=== PATIENT | male | born 1950 | race Caucasian/White ===

== ENCOUNTER 2019-04-14 18:53 | Observation (INO) | payer OTHER ==
[~2019-04-14] VITALS: Ht 170.2 cm; Wt 99.8 kg
[~2019-04-14 18:53] MED LIST: ACIDOPHILUS JT; CREON; CREON DR; DOCU100 PO; ENOX120I SQ; ESCI10 JT; HYDACE5 PO; IBUP600 PO; ISOSOURCE; LISI5 PO; LORA.5 PO; MULVITMINE PO; MULVITSO JT; OCTREOTIDE; OMEP20ER PO; OMEPRAZOLE; OXYCODONE JT; SODBIC650 PO; SODIUM BICARBONATE; TRAZ50 JT; WARF5 PO; ZINC220 JT
[2019-04-14] MEDS ORDERED: LOSA25 PO (19:28)
[2019-04-14] MEDS ORDERED: FISH OIL 1,001000 MG PO (19:29)
[2019-04-14] MEDS ORDERED: THERA1 EACH PO (19:29)
[2019-04-14] MEDS ORDERED: CALCIUM 500 +1 EAC3 PO (19:29)
[2019-04-14 19:33] LABS: BASOPHILS ABSOLUTE AUTO 0.03 K/mm3 (0.00-0.23); BASOPHILS PERCENT AUTO 0 % (0-2); EOSINOPHILS ABSOLUTE AUTO 0.08 K/mm3 (0.00-0.68); EOSINOPHILS PERCENT AUTO 1 % (0-6); Hematocrit 41.8 % (37.0-53.0); Hemoglobin 14.2 g/dL (13.5-17.5); IMMATURE GRAN ABSOLUTE AUTO 0.03 K/mm3 (0.00-0.10); IMMATURE GRAN PERCENT AUTO 0 % (0-1); LYMPHOCYTES ABSOLUTE AUTO 3.62 K/mm3 (0.84-5.20); LYMPHOCYTES PERCENT AUTO 28 % (21-46); MONOCYTES ABSOLUTE AUTO 0.83 K/mm3 (0.16-1.47); MONOCYTES PERCENT AUTO 7 % (4-13); Mean Corpuscular HGB 32.2 pg (26.0-34.0); Mean Corpuscular Volume 95 fL (80-100); Mean Platelet Volume 9.1 fL (9.1-12.4); NEUTROPHILS ABSOLUTE AUTO 8.25 K/mm3 (1.96-9.15); NEUTROPHILS PERCENT AUTO 64 % (41-73); Platelet Count 318 K/mm3 (150-400); RDW Coefficient Variation 13.2 % (11.7-14.2); RDW Standard Deviation 46.1 fL (35.1-46.3); Red Blood Cell Count 4.41 M/mm3 (4.30-5.90); White Blood Cell Count 12.84 K/mm3 (4.00-11.30)
[2019-04-14 20:03] LABS: Alanine Aminotransfer (ALT/SGP 19 U/L (12-78); Albumin, Blood 4.2 g/dL (3.4-5.0); Alk Phos 84 U/L (50-136); Anion Gap 8 mmol/L (6-16); Aspartate Aminotrans (AST/SGOT 9 U/L (12-37); Bilirubin, Total 0.5 mg/dL (0.1-1.0); Blood Urea Nitrogen 20 mg/dL (8-24); Bun/Creatinine Ratio 18.7 (12.0-20.0); CO2, Blood 26 mmol/L (21-32); Calcium, Blood 9.8 mg/dL (8.5-10.1); Chloride, Blood 105 mmol/L (98-108); Creatinine, Blood 1.07 mg/dL (0.60-1.20); Glomerular Filtration Rate >60 (60-); Glucose, Blood 118 mg/dL (70-99); Potassium, Blood 3.4 mmol/L (3.5-5.5); Sodium, Blood 139 mmol/L (136-145); Total Protein, Blood 8.2 g/dL (6.4-8.2); Troponin I <0.015 ng/mL (0.000-0.040)
[2019-04-14 20:14] LABS: Free Thyroxine 1.19 ng/dL (0.70-1.60); Magnesium, Blood 1.8 mg/dL (1.6-2.4)
[2019-04-14 20:17] LABS: Thyroid Stimulating Hormone 3.05 uIU/mL (0.360-4.800)
[2019-04-14] MEDS ORDERED: ALBU90OI INH (21:33)
[2019-04-15] MEDS ORDERED: FOLI1 PO (04:39)
[2019-04-15] MEDS ORDERED: Ginseng100 MG PO (04:40)
[2019-04-15 05:52] LABS: Anion Gap 8 mmol/L (6-16); Blood Urea Nitrogen 17 mg/dL (8-24); Bun/Creatinine Ratio 22.5 (12.0-20.0); CO2, Blood 25 mmol/L (21-32); Chloride, Blood 107 mmol/L (98-108); Creatinine, Blood 0.76 mg/dL (0.60-1.20); Glomerular Filtration Rate >60 (60-); Glucose, Blood 107 mg/dL (70-99); Potassium, Blood 3.7 mmol/L (3.5-5.5); Sodium, Blood 140 mmol/L (136-145); Troponin I <0.015 ng/mL (0.000-0.040)
--- NOTE | 2019-04-15 06:31 | NUR ---
PT NEW ADMIT THIS SHIFT FOR AFIB. PT VSS SINCE ARRIVING TO FLOOR, HR SINUS 70'S. PT DENIED CP/PRESSURE/SOB. PLAN FOR ECHO TODAY. ZOFRAN GIVEN FOR MILD NAUSEA, NO EMESIS. PT USING CALL LIGHT FOR ASSISTANCE, WILL CONT TO MONITOR UNITL REP GIVEN TO ONCOMING RN.
--- NOTE | 2019-04-15 10:43 | NUR ---
ECHOCARDIOGRAM COMPLETE
[2019-04-15] MEDS ORDERED: ELIQUIS5 MG PO (13:35)
[2019-04-15] MEDS ORDERED: Lopressor 25 mg25 MG PO (13:37)
--- NOTE | 2019-04-15 16:07 | NUR ---
PT D/C HOME VIA IND AMBULATION FROM UNIT. D/C INSTRUCTIONS PROVIDED; PT VERBALIZED UNDERSTANDING AND DECLINED ANY FURTHER CONCERNS. [facility] RE[facility]. IV REMOVED W/CATH INTACT.
== END 2019-04-15 14:10 | disposition home or self-care (01) ==
LOC: ER 18:53 → ERHOLD 18:54 → SURS 04-15 04:34
PROVIDERS: Emergency Medicine; ADMIT Internal Medicine
DX: I48.0 Paroxysmal atrial fibrillation (principal); R07.89 Other chest pain; I10 Essential (primary) hypertension; E11.9 Type 2 diabetes mellitus without complications; D72.829 Elevated white blood cell count, unspecified; E87.6 Hypokalemia; K21.9 Gastro-esophageal reflux disease without esophagitis; Z85.46 Personal history of malignant neoplasm of prostate; Z86.59 Personal history of other mental and behavioral disorders; Z87.19 Personal history of other diseases of the digestive system; Z86.711 Personal history of pulmonary embolism; Z87.891 Personal history of nicotine dependence; Z79.899 Other long term (current) drug therapy
CPT/HCPCS: 36415; 71046; 80048; 80053; 83036; 83690; 83735; 83880; 84439; 84443; 84484; 85025; 93005; 93010; 93306; 96365; 96366; 96375; 96376; 99285-25; G0378; J2405

== ENCOUNTER 2020-01-08 07:44 | Inpatient (IN) | payer OTHER ==
[~2020-01-08] VITALS: Ht 167.6 cm; Wt 89.4 kg
[~2020-01-08 07:44] MED LIST changes: +ALBU90OI INH; +CALCIUM 500 +1 EAC3 PO; +ELIQUIS5 MG PO; +FISH OIL 1,001000 MG PO; +FOLI1 PO; +Ginseng100 MG PO; +LOSA25 PO; +Lopressor 25 mg25 MG PO; +THERA1 EACH PO
--- NOTE | 2020-01-08 09:38 | NUR ---
History, Chart, Medications and Allergies reviewed before start of procedure. LS WITH EXP WHEEZES T/O. PT REPORTS SMOKES 2 PACKS OF CIGARS DAILY. Patient confirms NPO status and agrees with scheduled surgery. Pre-Op teaching done. Pt verbalizes understanding. Patient States Post-Procedure ride home has been arranged. Patient reports completing Chlorhexadine shower X2 prior to admission to hospital.
--- NOTE | 2020-01-08 13:19 | NUR ---
01/08/20 1319 Funmilayo Mtz [id number] CONVERTED TO OPEN JEFF
[2020-01-08 16:05] LABS: BASOPHILS ABSOLUTE AUTO 0.02 K/mm3 (0.00-0.23); BASOPHILS PERCENT AUTO 0 % (0-2); EOSINOPHILS PERCENT AUTO 0 % (0-6); Hematocrit 42.2 % (37.0-53.0); Hemoglobin 13.8 g/dL (13.5-17.5); IMMATURE GRAN ABSOLUTE AUTO 0.09 K/mm3 (0.00-0.10); IMMATURE GRAN PERCENT AUTO 1 % (0-1); LYMPHOCYTES ABSOLUTE AUTO 0.87 K/mm3 (0.84-5.20); LYMPHOCYTES PERCENT AUTO 5 % (21-46); MONOCYTES ABSOLUTE AUTO 0.23 K/mm3 (0.16-1.47); MONOCYTES PERCENT AUTO 1 % (4-13); Mean Corpuscular HGB 31.8 pg (26.0-34.0); Mean Corpuscular HGB Conc 32.7 g/dL (31.5-36.5); Mean Corpuscular Volume 97 fL (80-100); Mean Platelet Volume 9.3 fL (9.1-12.4); NEUTROPHILS ABSOLUTE AUTO 17.01 K/mm3 (1.96-9.15); NEUTROPHILS PERCENT AUTO 93 % (41-73); Platelet Count 249 K/mm3 (150-400); RDW Coefficient Variation 13.7 % (11.7-14.2); RDW Standard Deviation 49.5 fL (35.1-46.3); Red Blood Cell Count 4.34 M/mm3 (4.30-5.90); White Blood Cell Count 18.22 K/mm3 (4.00-11.30)
--- NOTE | 2020-01-08 19:35 | NUR ---
SHIFT SUMMARY PT ARRIVED AT 1600. VERY DROWSY AND GROGGY NEEDING FREQ REMINDERS. PT C/O NAUSEA THIS SHIFT ENDING DRY HEAVES NO EMESIS.
--- NOTE | 2020-01-09 00:39 | NUR ---
2350 PT UP BSC X 3 ASSIST; UNABLE TO VOID; PT RETURNED BACK TO BED AND BLADDER SCANNED FOR 588ML. 0030 PT STRAIGHT CATHED #14 BENINESE CATHETER VIA STERILE TECHNIQUE; 600ML CLEAR YELLOW FLUID NOTED; PT FEELS 100% BETTER.
--- NOTE | 2020-01-09 04:26 | NUR ---
SHIFT SUMMARY: 69 Y/O MALE HAD RESTLESS NIGHT AT TIMES; PT UNABLE TO VOID AND REQUIRED STRAIGHT CATHED 600ML AFTER BLADDER SCAN REFLECTED > 588ML; PT AWARE OF NEED TO VOID WITH URINAL AT SIDE; PT IS ALERT AND ORIENTED X 4 AND ABLE TO FOLLOW ALL SIMPLE VERBAL COMMANDS; PT WAS ASSISTED UP TO BSC X 3 THIS SHIFT WITH 2 NURSING STAFF AT SIDE; PTS BIRD [place] CONTINUES TO DRAIN LARGE AMOUNTS DARK RED FLUID; ABD DRESSINGS DRY AND INTACT (CARMELA AND DRESSING X 3 FROM FAILED LAP JEFF SURGICAL SITES X 3); PT C/O ABD PAIN RATED 7/10 WITH DILAUDID 0.2 MG IVP GIVEN TWICE WITH ADEQUATE PAIN RELIEF FELT; PT WEARING BILATERAL LOWER EXTREMITY SCDS; PT TOLERATING ICE CHIPS; BED LOW POSITION, BED ALARM APPLIED FOR SAFETY AND CALL LIGHT AT SIDE.
[2020-01-09 05:24] LABS: BASOPHILS ABSOLUTE AUTO 0.01 K/mm3 (0.00-0.23); BASOPHILS PERCENT AUTO 0 % (0-2); EOSINOPHILS PERCENT AUTO 0 % (0-6); Hematocrit 37.5 % (37.0-53.0); Hemoglobin 12.2 g/dL (13.5-17.5); IMMATURE GRAN ABSOLUTE AUTO 0.03 K/mm3 (0.00-0.10); IMMATURE GRAN PERCENT AUTO 0 % (0-1); LYMPHOCYTES ABSOLUTE AUTO 1.61 K/mm3 (0.84-5.20); LYMPHOCYTES PERCENT AUTO 11 % (21-46); MONOCYTES ABSOLUTE AUTO 0.82 K/mm3 (0.16-1.47); MONOCYTES PERCENT AUTO 6 % (4-13); Mean Corpuscular HGB 31.8 pg (26.0-34.0); Mean Corpuscular HGB Conc 32.5 g/dL (31.5-36.5); Mean Corpuscular Volume 98 fL (80-100); NEUTROPHILS ABSOLUTE AUTO 12.56 K/mm3 (1.96-9.15); NEUTROPHILS PERCENT AUTO 84 % (41-73); Platelet Count 223 K/mm3 (150-400); RDW Coefficient Variation 13.7 % (11.7-14.2); RDW Standard Deviation 49.2 fL (35.1-46.3); Red Blood Cell Count 3.84 M/mm3 (4.30-5.90); White Blood Cell Count 15.03 K/mm3 (4.00-11.30)
[2020-01-09 05:40] LABS: Alanine Aminotransfer (ALT/SGP 37 U/L (12-78); Albumin, Blood 2.9 g/dL (3.4-5.0); Albumin/Globulin Ratio 0.8 (0.8-1.8); Alk Phos 71 U/L (50-136); Anion Gap 5 mmol/L (6-16); Aspartate Aminotrans (AST/SGOT 28 U/L (12-37); Bilirubin, Total 0.4 mg/dL (0.1-1.0); Blood Urea Nitrogen 9 mg/dL (8-24); Bun/Creatinine Ratio 14.5 (12.0-20.0); CO2, Blood 26 mmol/L (21-32); Calcium, Blood 8.3 mg/dL (8.5-10.1); Chloride, Blood 111 mmol/L (98-108); Creatinine, Blood 0.62 mg/dL (0.60-1.20); Globulin, Blood 3.5 g/dL (2.2-4.0); Glomerular Filtration Rate >60 (60-); Glucose, Blood 127 mg/dL (70-99); Potassium, Blood 3.8 mmol/L (3.5-5.5); Sodium, Blood 142 mmol/L (136-145); Total Protein, Blood 6.4 g/dL (6.4-8.2)
--- NOTE | 2020-01-09 19:19 | NUR ---
SHIFT SUMMARY PT A&OX4, VSS, POD1, 4 SITES CDI, RAFAEL DRAINING SS, PAIN MANAGED WITH 5 MG NORCO, JOEY PO CL DIET. STAND TRANSFER TO CHAIR AND BACK TO BED. REPORT GIVEN TO KAEL TROY.
--- NOTE | 2020-01-10 05:07 | NUR ---
SHIFT SUMMARY: DANK IS A&OX4. VSS, NO ACUTE EVENTS OVERNIGHT. TOLERATING PO INTAKE, DENIES NAUSEA. HE IS URINATING WITHOUT DIFFICULTY IN THE URINAL. DRESSING INTACT TO ABDOMEN, NO NEW DRAINAGE. HE REPORTS ADEQUATE PAIN CONTROL WITH ONE TABLET OF NORCO. HE USES HIS CALL LIGHT APPROPRIATELY. O2 AT 2 L VIA NC. HE IS LYING COMFORTABLY IN BED WITH HIS CALL LIGHT IN REACH.
--- NOTE | 2020-01-10 19:42 | NUR ---
SHIFT SUMMARY PT A&OX4, VSS, POD2 SID/OPEN JEFF CARMELA WNL, ANDER AN. PAIN MANAGED WITH 5 MG NORCO. JOEY CL DIET; REPORTS SMALL FLATUS ONCE. AMB INDEPENDENTLY TO BRP/HALLWAY AND UP TO CHAIR. WILL REPORT TO ONCOMING NOC RN.
--- NOTE | 2020-01-11 07:58 | NUR ---
SUMMARY PT AMBULATORY.TOLERATING PO PAIN MED.INITIALLY NAUSEATED WHICH RESOLVED WITH 1 DOSE ANTIEMETIC.VERB PO PAINMEDS EFFECTIVE.HAS PASSED SMALL AMNT FLATUS.
--- NOTE | 2020-01-11 18:11 | NUR ---
Shift summary Patient had blood pressure reading of 86/52 HR 105 at 1619 - Patient started back on LR at 100cc/hr per order. Recheck BP of 78/47 HR 74 at 1748. Call placed to oncall surgeon. Order for LR bolus obtained. Recheck at 1805 BP 91/57 HR 74. Patient asymptomatic. Dressing to abdomen is CDI. Patient passing flatus. Patient tolerating regular diet. Pain controlled with [place]. Patient has been independent in the room. Patient is voiding dark yellow urine. Encouraged PO intake and maintainance IV fluids ordered. Call light within patient reach.
[2020-01-12 04:56] LABS: BASOPHILS ABSOLUTE AUTO 0.03 K/mm3 (0.00-0.23); BASOPHILS PERCENT AUTO 0 % (0-2); EOSINOPHILS ABSOLUTE AUTO 0.26 K/mm3 (0.00-0.68); EOSINOPHILS PERCENT AUTO 3 % (0-6); Hematocrit 38.3 % (37.0-53.0); Hemoglobin 12.9 g/dL (13.5-17.5); IMMATURE GRAN ABSOLUTE AUTO 0.01 K/mm3 (0.00-0.10); IMMATURE GRAN PERCENT AUTO 0 % (0-1); LYMPHOCYTES ABSOLUTE AUTO 2.77 K/mm3 (0.84-5.20); LYMPHOCYTES PERCENT AUTO 33 % (21-46); MONOCYTES ABSOLUTE AUTO 0.57 K/mm3 (0.16-1.47); MONOCYTES PERCENT AUTO 7 % (4-13); Mean Corpuscular HGB Conc 33.7 g/dL (31.5-36.5); Mean Corpuscular Volume 95 fL (80-100); Mean Platelet Volume 9.4 fL (9.1-12.4); NEUTROPHILS ABSOLUTE AUTO 4.79 K/mm3 (1.96-9.15); NEUTROPHILS PERCENT AUTO 57 % (41-73); Platelet Count 220 K/mm3 (150-400); RDW Coefficient Variation 13.1 % (11.7-14.2); Red Blood Cell Count 4.03 M/mm3 (4.30-5.90); White Blood Cell Count 8.43 K/mm3 (4.00-11.30)
[2020-01-12 05:16] LABS: Alanine Aminotransfer (ALT/SGP 24 U/L (12-78); Albumin, Blood 2.9 g/dL (3.4-5.0); Albumin/Globulin Ratio 0.8 (0.8-1.8); Alk Phos 74 U/L (50-136); Anion Gap 5 mmol/L (6-16); Aspartate Aminotrans (AST/SGOT 17 U/L (12-37); Bilirubin, Total 0.6 mg/dL (0.1-1.0); Blood Urea Nitrogen 10 mg/dL (8-24); CO2, Blood 30 mmol/L (21-32); Calcium, Blood 8.5 mg/dL (8.5-10.1); Chloride, Blood 104 mmol/L (98-108); Creatinine, Blood 0.59 mg/dL (0.60-1.20); Globulin, Blood 3.8 g/dL (2.2-4.0); Glomerular Filtration Rate >60 (60-); Glucose, Blood 98 mg/dL (70-99); Potassium, Blood 3.4 mmol/L (3.5-5.5); Sodium, Blood 139 mmol/L (136-145); Total Protein, Blood 6.7 g/dL (6.4-8.2)
--- NOTE | 2020-01-12 07:31 | NUR ---
SUMMARY PT PASSING FLATUS. NO C/O NAUSEA. REPORTS PAIN WELL CONTROLLED. VOIDING CLR YELLOW IMPROVED BP. ALSO NOTED PT ON LOPRESSER. HELD PER PROTOCOL. STAFF WILL CONTINUE TO MONITOR. PT AMBULATORY.
[2020-01-12] MEDS ORDERED: Norco 5-325 Ta1 EACH PO (12:13)
--- NOTE | 2020-01-12 12:46 | NUR ---
Discharge summary Patient discharged home. IV out. Prescription for [place] given to patient. Patient to follow up with general surgery. Discharge instructions given, explained and signed. Patient denied any questions or concerns at discharge.
[2020-02-25] MEDS ORDERED: HYDR1TAB94 PO (09:30)
== END 2020-01-12 12:49 | disposition home or self-care (01) | DRG 416 ==
LOC: ORSCMMR 07:44 → ORD 09:30 → ORSCMMR 14:58 → SURS 14:58 → ORSCMMR 15:50 → SURS 01-12 12:49
PROVIDERS: Surgery; ADMIT Surgery
PROC: 0DNU0ZZ Release Omentum, Open Approach (ICD-10-PCS; 2020-01-08)
PROC: 0WQF0ZZ Repair Abdominal Wall, Open Approach (ICD-10-PCS; 2020-01-08)
PROC: 0FT40ZZ Resection of Gallbladder, Open Approach (ICD-10-PCS; principal; 2020-01-08 09:30)
PROC: 0FJ44ZZ Inspection of Gallbladder, Percutaneous Endoscopic Approach (ICD-10-PCS; 2020-01-08 09:30)
DX: K80.20 Calculus of gallbladder without cholecystitis without obstruction (principal); F17.210 Nicotine dependence, cigarettes, uncomplicated; M54.9 Dorsalgia, unspecified; I10 Essential (primary) hypertension; I48.0 Paroxysmal atrial fibrillation; K21.9 Gastro-esophageal reflux disease without esophagitis; E78.5 Hyperlipidemia, unspecified; Z85.46 Personal history of malignant neoplasm of prostate; G47.30 Sleep apnea, unspecified; K43.2 Incisional hernia without obstruction or gangrene
CPT/HCPCS: 36415; 74300; 80053; 85025; 86850; 86900; 86901; 88304; A9270-GY; C1729; C1894; J0690; J1100; J1170; J1650; J2250; J2370; J2405; J2550; J2704; J3010; J7120

== ENCOUNTER 2020-02-27 15:42 | Inpatient (IN) | payer OTHER, MEDICARE ==
[~2020-02-27] VITALS: Wt 57.5 kg
[~2020-02-27 15:42] MED LIST changes: +HYDR1TAB94 PO; +Norco 5-325 Ta1 EACH PO
[2020-02-27 18:56] LABS: Hematocrit 29.4 % (37.0-53.0); Hemoglobin 9.6 g/dL (13.5-17.5); Mean Corpuscular HGB 30.7 pg (26.0-34.0); Mean Corpuscular HGB Conc 32.7 g/dL (31.5-36.5); Mean Corpuscular Volume 94 fL (80-100); Mean Platelet Volume 9.4 fL (9.1-12.4); Platelet Count 337 K/mm3 (150-400); RDW Standard Deviation 47.4 fL (35.1-46.3); Red Blood Cell Count 3.13 M/mm3 (4.30-5.90); White Blood Cell Count 15.96 K/mm3 (4.00-11.30)
== END 2020-02-27 21:40 | disposition short-term general hospital (02) | DRG 395 ==
LOC: SURS 15:42
PROVIDERS: ADMIT Surgery
DX: K63.2 Fistula of intestine (principal); I10 Essential (primary) hypertension; K21.9 Gastro-esophageal reflux disease without esophagitis; G47.33 Obstructive sleep apnea (adult) (pediatric); I48.0 Paroxysmal atrial fibrillation; Z87.891 Personal history of nicotine dependence; Z85.46 Personal history of malignant neoplasm of prostate
CPT/HCPCS: 85027; J2405; J7120; U0002

== ENCOUNTER → 2020-03-10 | Outpatient (CLI) | payer OTHER, BC ==
[~2020-03-10] MED LIST changes: +ZOFRAN8 MG PO
[2020-03-10 12:24] LABS: BASOPHILS ABSOLUTE AUTO 0.02 K/mm3 (0.00-0.23); BASOPHILS PERCENT AUTO 0 % (0-2); EOSINOPHILS ABSOLUTE AUTO 0.15 K/mm3 (0.00-0.68); EOSINOPHILS PERCENT AUTO 3 % (0-6); Hematocrit 28.2 % (37.0-53.0); Hemoglobin 8.9 g/dL (13.5-17.5); IMMATURE GRAN ABSOLUTE AUTO 0.02 K/mm3 (0.00-0.10); IMMATURE GRAN PERCENT AUTO 0 % (0-1); LYMPHOCYTES ABSOLUTE AUTO 1.42 K/mm3 (0.84-5.20); LYMPHOCYTES PERCENT AUTO 24 % (21-46); MONOCYTES ABSOLUTE AUTO 0.55 K/mm3 (0.16-1.47); MONOCYTES PERCENT AUTO 9 % (4-13); Mean Corpuscular HGB 30.7 pg (26.0-34.0); Mean Corpuscular HGB Conc 31.6 g/dL (31.5-36.5); Mean Corpuscular Volume 97 fL (80-100); Mean Platelet Volume 9.7 fL (9.1-12.4); NEUTROPHILS ABSOLUTE AUTO 3.88 K/mm3 (1.96-9.15); NEUTROPHILS PERCENT AUTO 64 % (41-73); Platelet Count 257 K/mm3 (150-400); RDW Coefficient Variation 16.1 % (11.7-14.2); RDW Standard Deviation 57.1 fL (35.1-46.3); White Blood Cell Count 6.04 K/mm3 (4.00-11.30)
[2020-03-10 12:50] LABS: Anion Gap 6 mmol/L (6-16); Blood Urea Nitrogen 27 mg/dL (8-24); Bun/Creatinine Ratio 47.8 (12.0-20.0); CO2, Blood 22 mmol/L (21-32); Calcium, Blood 8.4 mg/dL (8.5-10.1); Chloride, Blood 113 mmol/L (98-108); Creatinine, Blood 0.57 mg/dL (0.60-1.20); Glomerular Filtration Rate >60 (60-); Glucose, Blood 124 mg/dL (70-99); Lactate Dehydrogenase (Ld),Bld 164 U/L (100-240); Magnesium, Blood 2.2 mg/dL (1.6-2.4); Phosphorus, Blood 3.1 mg/dL (2.5-4.9); Potassium, Blood 4.4 mmol/L (3.5-5.5); Sodium, Blood 141 mmol/L (136-145)
[2020-03-10 12:51] LABS: Alanine Aminotransfer (ALT/SGP 20 U/L (12-78); Albumin, Blood 2.7 g/dL (3.4-5.0); Albumin/Globulin Ratio 0.6 (0.8-1.8); Alk Phos 73 U/L (50-136); Aspartate Aminotrans (AST/SGOT 12 U/L (12-37); Bilirubin, Direct <0.1 mg/dL (0.0-0.3); Bilirubin, Total 0.2 mg/dL (0.1-1.0); Globulin, Blood 4.2 g/dL (2.2-4.0); Total Protein, Blood 6.9 g/dL (6.4-8.2); Triglycerides 128 mg/dL (30-160)
== END ==
LOC: LAB SHORT 11:52 → LAB 11:52
PROVIDERS: Family Medicine
DX: Z45.2 Encounter for adjustment and management of vascular access device (principal); Z43.2 Encounter for attention to ileostomy; K31.6 Fistula of stomach and duodenum; K21.9 Gastro-esophageal reflux disease without esophagitis; T85.79XA Infection and inflammatory reaction due to other internal prosthetic devices, implants and grafts, initial encounter; I48.0 Paroxysmal atrial fibrillation; I10 Essential (primary) hypertension; D63.8 Anemia in other chronic diseases classified elsewhere
CPT/HCPCS: 80053; 82248; 83615; 83735; 84100; 84478; 85025

== ENCOUNTER 2020-03-12 20:17 | Emergency (ER) | payer OTHER, BC, MEDICARE ==
[~2020-03-12] VITALS: Ht 167.6 cm; Wt 78.0 kg
[~2020-03-12 20:17] MED LIST changes: -ZOFRAN8 MG PO
[2020-03-13 01:14] LABS: BASOPHILS ABSOLUTE AUTO 0.03 K/mm3 (0.00-0.23); BASOPHILS PERCENT AUTO 1 % (0-2); EOSINOPHILS ABSOLUTE AUTO 0.23 K/mm3 (0.00-0.68); EOSINOPHILS PERCENT AUTO 4 % (0-6); Hematocrit 31.9 % (37.0-53.0); Hemoglobin 10.1 g/dL (13.5-17.5); IMMATURE GRAN ABSOLUTE AUTO 0.01 K/mm3 (0.00-0.10); IMMATURE GRAN PERCENT AUTO 0 % (0-1); LYMPHOCYTES ABSOLUTE AUTO 2.33 K/mm3 (0.84-5.20); LYMPHOCYTES PERCENT AUTO 38 % (21-46); MONOCYTES ABSOLUTE AUTO 0.53 K/mm3 (0.16-1.47); MONOCYTES PERCENT AUTO 9 % (4-13); Mean Corpuscular HGB 30.8 pg (26.0-34.0); Mean Corpuscular HGB Conc 31.7 g/dL (31.5-36.5); Mean Corpuscular Volume 97 fL (80-100); Mean Platelet Volume 9.3 fL (9.1-12.4); NEUTROPHILS ABSOLUTE AUTO 3.03 K/mm3 (1.96-9.15); NEUTROPHILS PERCENT AUTO 49 % (41-73); Platelet Count 255 K/mm3 (150-400); RDW Coefficient Variation 16.2 % (11.7-14.2); RDW Standard Deviation 57.9 fL (35.1-46.3); Red Blood Cell Count 3.28 M/mm3 (4.30-5.90); White Blood Cell Count 6.16 K/mm3 (4.00-11.30)
[2020-03-13 01:32] LABS: Alanine Aminotransfer (ALT/SGP 18 U/L (12-78); Albumin/Globulin Ratio 0.7 (0.8-1.8); Alk Phos 86 U/L (50-136); Anion Gap 7 mmol/L (6-16); Aspartate Aminotrans (AST/SGOT 12 U/L (12-37); Bilirubin, Total 0.3 mg/dL (0.1-1.0); Blood Urea Nitrogen 25 mg/dL (8-24); Bun/Creatinine Ratio 38.1 (12.0-20.0); CO2, Blood 20 mmol/L (21-32); Calcium, Blood 9.2 mg/dL (8.5-10.1); Chloride, Blood 114 mmol/L (98-108); Creatinine, Blood 0.66 mg/dL (0.60-1.20); Globulin, Blood 4.6 g/dL (2.2-4.0); Glomerular Filtration Rate >60 (60-); Glucose, Blood 88 mg/dL (70-99); Potassium, Blood 3.9 mmol/L (3.5-5.5); Sodium, Blood 141 mmol/L (136-145); Total Protein, Blood 7.6 g/dL (6.4-8.2)
[2020-03-13 02:32] LABS: Source, Urine Clean Catch
[2020-03-13 02:41] LABS: Bilirubin, Urine Neg (Neg); Blood, Urine Neg (Neg); Glucose Qualitative, Urine Neg (Neg); Ketones, Urine Neg (Neg); Leukocyte Esterase, Urine Neg (Neg); Nitrite, Urine Neg (Neg); Protein, Urine 1+ (Neg); Urobilinogen, Urine NORM (Normal)
[2020-03-13 02:51] LABS: Appearance, Urine Clear (Clear); Color, Urine Yellow (P-Yellow)
[2020-03-13] MEDS ORDERED: ZOFRAN8 MG PO (03:05)
== END 2020-03-13 07:02 | disposition short-term general hospital (02) ==
LOC: ER 20:17
PROVIDERS: Physician Assistant
DX: T81.31XA Disruption of external operation (surgical) wound, not elsewhere classified, initial encounter (principal); K63.2 Fistula of intestine; I10 Essential (primary) hypertension; K21.9 Gastro-esophageal reflux disease without esophagitis; I48.91 Unspecified atrial fibrillation; F17.210 Nicotine dependence, cigarettes, uncomplicated; Z20.828 Contact with and (suspected) exposure to other viral communicable diseases; Z79.899 Other long term (current) drug therapy; Z79.01 Long term (current) use of anticoagulants; Y83.3 Surgical operation with formation of external stoma as the cause of abnormal reaction of the patient, or of later complication, without mention of misadventure at the time of the procedure
CPT/HCPCS: 74177; 80053; 83690; 85025; 99284-25; Q9967; U0002

== ENCOUNTER → 2020-03-23 | Outpatient (CLI) | payer OTHER, BC ==
[~2020-03-23] MED LIST changes: +IMODIUM A-D2 M1 PO; +Ventolin/Prove6.7 GM INH; +ZOFRAN8 MG PO
[2020-03-23 15:46] LABS: Alanine Aminotransfer (ALT/SGP 15 U/L (12-78); Albumin, Blood 2.8 g/dL (3.4-5.0); Albumin/Globulin Ratio 0.6 (0.8-1.8); Alk Phos 95 U/L (50-136); Anion Gap 7 mmol/L (6-16); Aspartate Aminotrans (AST/SGOT 12 U/L (12-37); Bilirubin, Total 0.3 mg/dL (0.1-1.0); Blood Urea Nitrogen 30 mg/dL (8-24); Bun/Creatinine Ratio 45.6 (12.0-20.0); CO2, Blood 22 mmol/L (21-32); Calcium, Blood 8.7 mg/dL (8.5-10.1); Chloride, Blood 110 mmol/L (98-108); Creatinine, Blood 0.66 mg/dL (0.60-1.20); Globulin, Blood 4.4 g/dL (2.2-4.0); Glomerular Filtration Rate >60 (60-); Glucose, Blood 88 mg/dL (70-99); Lactate Dehydrogenase (Ld),Bld 194 U/L (100-240); Magnesium, Blood 1.9 mg/dL (1.6-2.4); Phosphorus, Blood 3.3 mg/dL (2.5-4.9); Sodium, Blood 139 mmol/L (136-145); Total Protein, Blood 7.2 g/dL (6.4-8.2); Triglycerides 128 mg/dL (30-160)
== END ==
LOC: LAB SHORT 14:30 → LAB 14:30
PROVIDERS: Surgery
DX: Z43.2 Encounter for attention to ileostomy (principal); Z45.2 Encounter for adjustment and management of vascular access device; K21.9 Gastro-esophageal reflux disease without esophagitis; D63.8 Anemia in other chronic diseases classified elsewhere; T85.79XA Infection and inflammatory reaction due to other internal prosthetic devices, implants and grafts, initial encounter
CPT/HCPCS: 80053; 83615; 83735; 84100; 84478

== ENCOUNTER → 2020-03-30 | Outpatient (CLI) | payer OTHER, BC ==
[2020-03-30 19:42] LABS: BASOPHILS ABSOLUTE AUTO 0.01 K/mm3 (0.00-0.23); BASOPHILS PERCENT AUTO 0 % (0-2); EOSINOPHILS ABSOLUTE AUTO 0.01 K/mm3 (0.00-0.68); EOSINOPHILS PERCENT AUTO 0 % (0-6); Hematocrit 29.5 % (37.0-53.0); Hemoglobin 9.2 g/dL (13.5-17.5); IMMATURE GRAN ABSOLUTE AUTO 0.06 K/mm3 (0.00-0.10); IMMATURE GRAN PERCENT AUTO 1 % (0-1); LYMPHOCYTES ABSOLUTE AUTO 1.76 K/mm3 (0.84-5.20); LYMPHOCYTES PERCENT AUTO 20 % (21-46); MONOCYTES ABSOLUTE AUTO 0.62 K/mm3 (0.16-1.47); MONOCYTES PERCENT AUTO 7 % (4-13); Mean Corpuscular HGB 29.5 pg (26.0-34.0); Mean Corpuscular HGB Conc 31.2 g/dL (31.5-36.5); Mean Corpuscular Volume 95 fL (80-100); Mean Platelet Volume 9.5 fL (9.1-12.4); NEUTROPHILS ABSOLUTE AUTO 6.36 K/mm3 (1.96-9.15); NEUTROPHILS PERCENT AUTO 72 % (41-73); Platelet Count 412 K/mm3 (150-400); RDW Coefficient Variation 15.8 % (11.7-14.2); RDW Standard Deviation 54.3 fL (35.1-46.3); Red Blood Cell Count 3.12 M/mm3 (4.30-5.90); White Blood Cell Count 8.82 K/mm3 (4.00-11.30)
[2020-03-30 19:57] LABS: Alanine Aminotransfer (ALT/SGP 14 U/L (12-78); Albumin, Blood 2.7 g/dL (3.4-5.0); Albumin/Globulin Ratio 0.5 (0.8-1.8); Alk Phos 141 U/L (50-136); Anion Gap 11 mmol/L (6-16); Aspartate Aminotrans (AST/SGOT 11 U/L (12-37); Bilirubin, Total 0.3 mg/dL (0.1-1.0); Blood Urea Nitrogen 45 mg/dL (8-24); Bun/Creatinine Ratio 60.8 (12.0-20.0); CO2, Blood 16 mmol/L (21-32); Calcium, Blood 10.3 mg/dL (8.5-10.1); Chloride, Blood 113 mmol/L (98-108); Creatinine, Blood 0.74 mg/dL (0.60-1.20); Globulin, Blood 5.7 g/dL (2.2-4.0); Glomerular Filtration Rate >60 (60-); Glucose, Blood 101 mg/dL (70-99); Lactate Dehydrogenase (Ld),Bld 198 U/L (100-240); Phosphorus, Blood 4.1 mg/dL (2.5-4.9); Potassium, Blood 4.1 mmol/L (3.5-5.5); Sodium, Blood 140 mmol/L (136-145); Total Protein, Blood 8.4 g/dL (6.4-8.2); Triglycerides 182 mg/dL (30-160)
== END | disposition home or self-care (01) ==
LOC: LAB SHORT 18:13 → LAB 18:13
PROVIDERS: Surgery
DX: T85.79XD Infection and inflammatory reaction due to other internal prosthetic devices, implants and grafts, subsequent encounter (principal); K63.2 Fistula of intestine; I48.0 Paroxysmal atrial fibrillation; D63.8 Anemia in other chronic diseases classified elsewhere
CPT/HCPCS: 80053; 83615; 83735; 84100; 84478; 85025

== ENCOUNTER → 2020-04-06 | Outpatient (CLI) | payer OTHER, BC ==
[2020-04-06 18:38] LABS: BASOPHILS ABSOLUTE AUTO 0.02 K/mm3 (0.00-0.23); BASOPHILS PERCENT AUTO 0 % (0-2); EOSINOPHILS ABSOLUTE AUTO 0.01 K/mm3 (0.00-0.68); EOSINOPHILS PERCENT AUTO 0 % (0-6); Hematocrit 27.3 % (37.0-53.0); Hemoglobin 8.6 g/dL (13.5-17.5); IMMATURE GRAN ABSOLUTE AUTO 0.05 K/mm3 (0.00-0.10); IMMATURE GRAN PERCENT AUTO 0 % (0-1); LYMPHOCYTES ABSOLUTE AUTO 1.51 K/mm3 (0.84-5.20); LYMPHOCYTES PERCENT AUTO 12 % (21-46); MONOCYTES ABSOLUTE AUTO 0.81 K/mm3 (0.16-1.47); MONOCYTES PERCENT AUTO 6 % (4-13); Mean Corpuscular HGB 29.9 pg (26.0-34.0); Mean Corpuscular HGB Conc 31.5 g/dL (31.5-36.5); Mean Corpuscular Volume 95 fL (80-100); Mean Platelet Volume 9.2 fL (9.1-12.4); NEUTROPHILS ABSOLUTE AUTO 10.61 K/mm3 (1.96-9.15); NEUTROPHILS PERCENT AUTO 82 % (41-73); Platelet Count 538 K/mm3 (150-400); RDW Coefficient Variation 15.9 % (11.7-14.2); Red Blood Cell Count 2.88 M/mm3 (4.30-5.90); White Blood Cell Count 13.01 K/mm3 (4.00-11.30)
[2020-04-06 19:02] LABS: Magnesium, Blood 2.1 mg/dL (1.6-2.4)
[2020-04-06 19:03] LABS: Lactate Dehydrogenase (Ld),Bld 174 U/L (100-240)
[2020-04-06 19:34] LABS: Alanine Aminotransfer (ALT/SGP 18 U/L (12-78); Albumin, Blood 2.4 g/dL (3.4-5.0); Albumin/Globulin Ratio 0.4 (0.8-1.8); Alk Phos 115 U/L (50-136); Anion Gap 20 mmol/L (6-16); Aspartate Aminotrans (AST/SGOT 9 U/L (12-37); Bilirubin, Total 0.2 mg/dL (0.1-1.0); Blood Urea Nitrogen 37 mg/dL (8-24); Bun/Creatinine Ratio 37.2 (12.0-20.0); CO2, Blood 9 mmol/L (21-32); Calcium, Blood 10.1 mg/dL (8.5-10.1); Chloride, Blood 108 mmol/L (98-108); Glomerular Filtration Rate >60 (60-); Glucose, Blood 67 mg/dL (70-99); Phosphorus, Blood 5.6 mg/dL (2.5-4.9); Potassium, Blood 3.8 mmol/L (3.5-5.5); Sodium, Blood 137 mmol/L (136-145); Total Protein, Blood 8.4 g/dL (6.4-8.2); Triglycerides 171 mg/dL (30-160)
== END ==
LOC: LAB 18:27 → LAB SHORT 18:27
PROVIDERS: Surgery
DX: K31.6 Fistula of stomach and duodenum (principal)
CPT/HCPCS: 80053; 83615; 83735; 84100; 84478; 85025

== ENCOUNTER 2020-04-10 09:39 | Inpatient (IN) | payer OTHER, MEDICARE, BC ==
[~2020-04-10] VITALS: Ht 167.6 cm; Wt 77.2 kg
[~2020-04-10 09:39] MED LIST changes: -IMODIUM A-D2 M1 PO; -Ventolin/Prove6.7 GM INH
[2020-04-10] MEDS ORDERED: Ventolin/Prove6.7 GM INH (10:20)
[2020-04-10] MEDS ORDERED: IMODIUM A-D2 M1 PO (10:20)
[2020-04-10 10:42] LABS: BASOPHILS ABSOLUTE AUTO 0.04 K/mm3 (0.00-0.23); BASOPHILS PERCENT AUTO 0 % (0-2); EOSINOPHILS ABSOLUTE AUTO 0.01 K/mm3 (0.00-0.68); EOSINOPHILS PERCENT AUTO 0 % (0-6); Hematocrit 33.1 % (37.0-53.0); Hemoglobin 10.2 g/dL (13.5-17.5); IMMATURE GRAN ABSOLUTE AUTO 0.14 K/mm3 (0.00-0.10); IMMATURE GRAN PERCENT AUTO 1 % (0-1); LYMPHOCYTES ABSOLUTE AUTO 2.45 K/mm3 (0.84-5.20); LYMPHOCYTES PERCENT AUTO 11 % (21-46); MONOCYTES PERCENT AUTO 6 % (4-13); Mean Corpuscular HGB 29.8 pg (26.0-34.0); Mean Corpuscular HGB Conc 30.8 g/dL (31.5-36.5); Mean Corpuscular Volume 97 fL (80-100); Mean Platelet Volume 8.9 fL (9.1-12.4); NEUTROPHILS PERCENT AUTO 82 % (41-73); NRBC ABSOLUTE 0.04 K/mm3 (0.00-0.02); NRBC Auto 0.2 /100 WBC (0.0-0.2); Platelet Count 987 K/mm3 (150-400); RDW Coefficient Variation 16.3 % (11.7-14.2); RDW Standard Deviation 58.1 fL (35.1-46.3); Red Blood Cell Count 3.42 M/mm3 (4.30-5.90); White Blood Cell Count 21.74 K/mm3 (4.00-11.30)
[2020-04-10 10:56] LABS: Troponin I <0.015 ng/mL (0.000-0.040)
[2020-04-10 11:09] LABS: Alanine Aminotransfer (ALT/SGP 16 U/L (12-78); Albumin, Blood 2.9 g/dL (3.4-5.0); Albumin/Globulin Ratio 0.4 (0.8-1.8); Alk Phos 166 U/L (50-136); Anion Gap 24 mmol/L (6-16); Aspartate Aminotrans (AST/SGOT 9 U/L (12-37); Bilirubin, Total 0.2 mg/dL (0.1-1.0); Blood Urea Nitrogen 57 mg/dL (8-24); Bun/Creatinine Ratio 30.3 (12.0-20.0); CO2, Blood 5 mmol/L (21-32); Calcium, Blood 10.8 mg/dL (8.5-10.1); Chloride, Blood 108 mmol/L (98-108); Creatinine, Blood 1.88 mg/dL (0.60-1.20); Globulin, Blood 6.8 g/dL (2.2-4.0); Glomerular Filtration Rate 38 (60-); Glucose, Blood 217 mg/dL (70-99); Potassium, Blood 3.9 mmol/L (3.5-5.5); Sodium, Blood 137 mmol/L (136-145); Total Protein, Blood 9.7 g/dL (6.4-8.2)
[2020-04-10 12:10] LABS: Base Excess Venous -28.8 mmol/L; Bicarbonate Venous 5.8 mmol/L (24.0-30.0); PCO2 Venous 21.2 mmHg (38-42)
[2020-04-10 16:28] LABS: PO2 Arterial 116 mmHg (80-100)
[2020-04-10 16:31] LABS: PCO2 Arterial 12.3 mmHg (35-45); pH Blood Arterial 7.14 (7.35-7.45)
--- NOTE | 2020-04-10 17:36 | NUR ---
BEDSIDE REPORT GIVEN TO PATRICIA TROY IN ICU.
[2020-04-10 19:01] LABS: Source, Urine Clean Catch
[2020-04-10 19:10] LABS: Appearance, Urine Clear (Clear); Bilirubin, Urine Neg (Neg); Blood, Urine 2+ (Neg); Color, Urine Yellow (P-Yellow); Glucose Qualitative, Urine Neg (Neg); Ketones, Urine 1+ (Neg); Leukocyte Esterase, Urine Neg (Neg); Nitrite, Urine Neg (Neg); Protein, Urine 3+ (Neg); Specific Gravity, Urine 1.015 (1.003-1.022); Urobilinogen, Urine NORM (Normal)
--- NOTE | 2020-04-10 19:15 | NUR ---
Assumed care of pt upon arrival to ICU 9 at 1715 from PCU. Pt A&O x 2. Answers questions, but is slow to respond. Follows commands. Denies lightheadedness, dizziness, or drowsiness. However, pt is lethargic, awakening to verbal stimulus but quickly falls back asleep. SpO2 100% on room air. Hypertensive and tachycardic. Pt reports pain to his abdomen. Plan of care discussed with Dr Tee, who is now consulted per request of Dr Arroyo. Provider contacted Dr Dawn. Dr Patel plans to notify pt's outpatient surgeon of appearance of abdominal fistula. This RN changed removed previous dressing of abd pad and medipore tape. Photographs obtained. Site cleaned with sterile saline. Dressed with supraabsorbant mepilex and medipore tape. Site is oozing liquid brown/green drainage with chunks. Per Dr Tee, PICC line, which was placed as outpatient on 02/04 is to be removed if 2 peripheral accesses can be obtained. Tip of PICC line to be cultured to eval for source of infection. PICC line dressd with biopatch and window dressing. Powerglide placed by Ester TROY. Espinal catheter placed for strict measurement of fluid intake and output. Ordered labs for urine sent. Report given to oncLindsay purdy RN.
[2020-04-10 19:32] LABS: Bacteria Few /hpf; Hyaline Casts 0-2 /lpf (0-2); Red Blood Cells, Urine 0-2 /hpf (0-2); Squamous Epithelial Cells Few /hpf (Few); White Blood Cells, Urine 0-2 /hpf (0-5)
[2020-04-10 19:39] LABS: U Amphetamine Screen Not Detected; U Barbituate Screen Not Detected; U Benzodiazapine Screen Not Detected; U Buprenorphine Screen Not Detected; U Cannabinoids Screen Not Detected; U Cocaine Screen Not Detected; U Methadone Screen Not Detected; U Methamphetamine Screen Not Detected; U Opiates Screen Not Detected; U Oxycodone Screen Not Detected; U Phencyclidine Screen Not Detected; U Propoxyphene Screen Not Detected
[2020-04-10 20:21] LABS: Eosinophils-Raw #,Urine 0
[2020-04-10 20:28] LABS: BASOPHILS ABSOLUTE AUTO 0.01 K/mm3 (0.00-0.23); BASOPHILS PERCENT AUTO 0 % (0-2); EOSINOPHILS PERCENT AUTO 0 % (0-6); Hematocrit 25.4 % (37.0-53.0); Hemoglobin 8.1 g/dL (13.5-17.5); IMMATURE GRAN ABSOLUTE AUTO 0.06 K/mm3 (0.00-0.10); IMMATURE GRAN PERCENT AUTO 0 % (0-1); LYMPHOCYTES ABSOLUTE AUTO 0.76 K/mm3 (0.84-5.20); LYMPHOCYTES PERCENT AUTO 5 % (21-46); MONOCYTES ABSOLUTE AUTO 0.25 K/mm3 (0.16-1.47); MONOCYTES PERCENT AUTO 2 % (4-13); Mean Corpuscular HGB 29.7 pg (26.0-34.0); Mean Corpuscular HGB Conc 31.9 g/dL (31.5-36.5); Mean Platelet Volume 8.7 fL (9.1-12.4); NEUTROPHILS ABSOLUTE AUTO 15.19 K/mm3 (1.96-9.15); NEUTROPHILS PERCENT AUTO 93 % (41-73); Platelet Count 733 K/mm3 (150-400); RDW Coefficient Variation 15.9 % (11.7-14.2); RDW Standard Deviation 54.5 fL (35.1-46.3); Red Blood Cell Count 2.73 M/mm3 (4.30-5.90); White Blood Cell Count 16.27 K/mm3 (4.00-11.30)
[2020-04-10 20:30] LABS: Mean Corpuscular Volume 93 fL (80-100)
--- NOTE | 2020-04-10 20:34 | NUR ---
LABS AT CHANGE OF SHIFT, NOTIFIED BY LAB THAT CBC LABS APPEARED TO BE INACCURATE. REDREW FROM POWERGLIDE ON LEFT UPPER ARM. ONCE AGAIN, NOTIFIED BY LAB THAT SPECIMEN APPEARS TO BE READING INCORRECTLY H&H IS LOW. OREN FROM LAB TO BEDSIDE WITH SUCCESSFUL LAB DRAW.
--- NOTE | 2020-04-10 20:35 | NUR ---
DR. ANDERS COMMUNICATION CALL RECEIVED FROM DR. ANDERS REGARDING PT'S STATUS. REQUESTING THAT KCL BE GIVEN PRIOR TO SODIUM BICARB PUSH. ALSO REQUESTING TO ASK PATIENT ABOUT THE DURATION OF HIS PPN PRIOR TO ADMISSION. UPDATED REGARDING PENDING LAB STATUS.
--- NOTE | 2020-04-10 20:37 | NUR ---
UPDATE PT CONTINUES TO BE EXTREMELY DROWSY, DIFFICULT TO AROUSE. ASKED PT REGARDING PREVIOUS USE OF PPN AT HOME. PT REPEATEDLY STATES, "MONTH, NO NO NO!" WHEN PROMPTED WITH 6 MONTHS, PT SAYS, "YES!" WHEN ASKED HOW HE TAKES HIS ORAL MEDICAITONS, PT UNABLE TO FORMULATE ANSWER. WHEN PROMPTED WITH SWALLOWING THEM, PT STATES, "YES," AND STARTS DROWSILY LISTING OFF MEDICATIONS HE TAKES AT HOME, REPEATING IBUPROFEN OVER AND OVER AGAIN. LABS CONTINUE TO BE PENDING. WILL UPDATE DR. ANDERS WHEN ALL OF THE INFORMATION IS AVAILABLE.
--- NOTE | 2020-04-10 21:04 | NUR ---
LABS AFTER REPEATING CBC, NOTIFIED BY LAB THAT THEY WOULD ALSO LIKE TO REDRAW CHEMISTRY. OREN FROM LAB BACK TO BEDSIDE TO REDRAW CHEMISTRY.
[2020-04-10 21:26] LABS: Bun/Creatinine Ratio 34.7 (12.0-20.0); Calcium, Blood 9.3 mg/dL (8.5-10.1); Creatinine, Blood 1.5 mg/dL (0.60-1.20); Potassium, Blood 2.7 mmol/L (3.5-5.5)
--- NOTE | 2020-04-10 22:21 | NUR ---
DR. ANDERS SPOKE WITH DR. ANDERS REGARDING MOST RECENT LABS. SEE NEW ORDERS.
--- NOTE | 2020-04-10 23:16 | NUR ---
PICC REMOVAL PICC LINE TO RIGHT UPPER ARM REMOVED, TIP SENT TO LAB FOR CULTURE PER ORDERS. PT TOLERATED WELL. NO BLEEIDNG NOTED. VITALS STABLE. ASSESSMENT UNCHANGED.
[2020-04-11 02:38] LABS: Albumin, Blood 2.2 g/dL (3.4-5.0); Anion Gap 16 mmol/L (6-16); Blood Urea Nitrogen 45 mg/dL (8-24); Bun/Creatinine Ratio 37.8 (12.0-20.0); CO2, Blood 14 mmol/L (21-32); Calcium, Blood 8.9 mg/dL (8.5-10.1); Chloride, Blood 115 mmol/L (98-108); Creatinine, Blood 1.19 mg/dL (0.60-1.20); Glomerular Filtration Rate >60 (60-); Glucose, Blood 178 mg/dL (70-99); Phosphorus, Blood 3.9 mg/dL (2.5-4.9); Potassium, Blood 2.9 mmol/L (3.5-5.5); Sodium, Blood 145 mmol/L (136-145)
--- NOTE | 2020-04-11 06:08 | NUR ---
SUMMARY PT HAS CONTINUED TO BE SLEEPY THROUGHOUT NIGHT, BUT GRADUALLY COMMUNICATING AND HELPING WITH ADL'S MORE MORNING PROGRESSES. PT HAS BEEN KEPT NPO, INCLUDING MEDS, DUE TO CONCERN FOR ASPIRATION DUE TO DROWSINESS AND PER DR. HER'S NOTE, PT TO GO IN FOR ABDOMINAL SITE DEBRIDEMENT TODAY. PT REPORTS PAIN INTERMITTENTLY WHILE AWAKE, BUT IMMEDIATELY FALLS ASLEEP WHEN STAFF EXIT ROOM. CONCERNED FOR OVER SEDATION. VITALS STABLE EXCEPT BP MILDY SOFT WHILE PT ASLEEP. BP QUICKLY RISES WHEN PT AWAKE. SEE FLOWSHEET. GOOD OUTPUT FROM [place]. ABDOMINAL DRESSING CHANGED ONCE FOR SATURATION WITH LIQUID BROWN STOOL. PT EDUCATED AND REMINDED REGARDING PLAN OF CARE, AND THIS MORNING ORIENTED ENOUGH TO EXPLAIN THAT DR. HER WAS THE PHYSICIAN TO REMOVE HIS GALLBLADDER WHICH WAS WHAT INITIATED THE CHAIN OF EVENTS RELATED TO HIS ABDOMEN. PT EAGER TO "GET MY LIFE BACK." REPORTS THAT HE HAS HAD A HARD TIME WITH NOT BEING ABLE TO EAT OR DRINK OVER THE PAST SIX MONTHS. NO BOWEL MOVEMENT FROM RECTUM TODAY. PT HAS NOT USED CALL LIGHT OR EXPRESSED NEEDS, EXCEPT FOR WHEN STAFF ARE IN ROOM. ORIENTED AND REMINDED OF CALL LIGHT. SODIUM BICARB INFUSING AT 100 ML/HR PER DR. ANDERS. POTASSIUM REPLACEMENTS CONTINUE PER ORDERS. REPEAT CHEMISTRY DRAWN AT [address] ANDERS. BECAUSE OF THIS, MORNING LABS HELD PER JUDGEMENT UNTIL COMPLETION OF POTASSIUM INFUSIONS ORDERED THIS MORNING.
--- NOTE | 2020-04-11 07:20 | NUR ---
ASSUMED CARE BEDSIDE REPORT RECIEVED. PT IS AWAKE, ALERT, AND ORIENTED. PT IS SLOW TO RESPOND. VITAL SIGNS STABLE, PT ON ROOM AIR. PT COMPLAINS OF SOME BACK PAIN AT TIMES. PT REPORTS RELIEF AFTER BOOSTED IN BED. POWERGLIDE TO SERGIO WITH BICARB INFUSING AT 100 ML/HR. [place] IN PLACE WITH YELLOW URINE OUTPUT NOTED. PT WITH MIDLINE ABDOMINAL FISTULA/WOUND. DRESSING IN PLACE, STOOL OUTPUT NOTED. SITE REDDENED ON SURROUNDING SKIN. SEE PHOTOS IN CHART. WILL CONTINUE TO MONITOR.
[2020-04-11 08:19] LABS: PCO2 Arterial 22.9 mmHg (35-45); PO2 Arterial 73.2 mmHg (80-100); pH Blood Arterial 7.43 (7.35-7.45)
[2020-04-11 09:43] LABS: Hematocrit 21.2 % (37.0-53.0); Mean Corpuscular HGB 29.4 pg (26.0-34.0); Mean Corpuscular Volume 89 fL (80-100); Mean Platelet Volume 8.8 fL (9.1-12.4); NRBC ABSOLUTE 0.02 K/mm3 (0.00-0.02); NRBC Auto 0.2 /100 WBC (0.0-0.2); Platelet Count 675 K/mm3 (150-400); RDW Coefficient Variation 15.7 % (11.7-14.2); RDW Standard Deviation 51.4 fL (35.1-46.3); Red Blood Cell Count 2.38 M/mm3 (4.30-5.90); White Blood Cell Count 13.32 K/mm3 (4.00-11.30)
[2020-04-11 10:04] LABS: Anion Gap 14 mmol/L (6-16); Blood Urea Nitrogen 43 mg/dL (8-24); Bun/Creatinine Ratio 47.9 (12.0-20.0); CO2, Blood 18 mmol/L (21-32); Calcium, Blood 9.2 mg/dL (8.5-10.1); Chloride, Blood 117 mmol/L (98-108); Glomerular Filtration Rate >60 (60-); Glucose, Blood 168 mg/dL (70-99); Potassium, Blood 2.9 mmol/L (3.5-5.5); Sodium, Blood 149 mmol/L (136-145)
[2020-04-11 10:11] LABS: Phosphorus, Blood 3.3 mg/dL (2.5-4.9); Triglycerides 128 mg/dL (30-160)
[2020-04-11 14:54] LABS: Albumin, Blood 2.2 g/dL (3.4-5.0); Anion Gap 13 mmol/L (6-16); Blood Urea Nitrogen 39 mg/dL (8-24); Bun/Creatinine Ratio 46.3 (12.0-20.0); CO2, Blood 20 mmol/L (21-32); Calcium, Blood 9.2 mg/dL (8.5-10.1); Chloride, Blood 116 mmol/L (98-108); Creatinine, Blood 0.84 mg/dL (0.60-1.20); Glomerular Filtration Rate >60 (60-); Glucose, Blood 149 mg/dL (70-99); Phosphorus, Blood 2.9 mg/dL (2.5-4.9); Sodium, Blood 149 mmol/L (136-145)
--- NOTE | 2020-04-11 15:59 | NUR ---
TAKEN TO OR PT TAKEN TO OR VIA GURJENNIFER. PT STOOD UP TO TRANSFER WELL. DR ANDERS IN ROOM AT THIS TIME, ORDERS RECIEVED.
--- NOTE | 2020-04-11 16:44 | NUR ---
04/11/20 5637 Loli Ramirez CLEANSED AND PREPPED ABDOMINAL WOUND
--- NOTE | 2020-04-11 18:10 | NUR ---
SHIFT SUMMARY/RETURN FROM OR PT RETURNED TO ICU ROOM AT 1755 VIA GURNEY FROM PACU. PT IS AWAKE, ALERT, AND ORIENTED. PT COMPLAINS OF ABD PAIN AT THIS TIME. PT MED WITH FENTANYL PER EMAR. PT HAS OTHERWISE DENIED PAIN THROUGHOUT THE SHIFT. POWERGLIDE AND IV REMAIN INTACT TO LEFT ARM. KCL IVPB STARTED AT THIS TIME. PT WITH ABDOMINAL WOUND WITH DRESSING C/D/I. [place] REMAINS IN PLACE WITH YELLOW URINE OUTPUT NOTED. VITAL SIGNS STABLE, PT ON ROOM AIR. PER DR SANCHEZ, INITIATION OF PLANS TO TRANSFER PT TO [facility] HAVE BEEN STARTED. AWAITING OFFICIAL TRANSFER ORDERS AT THIS TIME. WILL CONTINUE TO MONITOR AND REPORT OFF TO ONCOMING RN.
--- NOTE | 2020-04-11 20:00 | NUR ---
CARE ASSUMED REPORT RECEIVED, CARE ASSUMED AT 1900 FROM SYDNI KING. PT AWAKE IN BED, ALERT, EXTREMELY TALKATIVE. PT REPORTS PAIN IN ABDOMEN, BUT IMPROVED WITH PREVIOUS FENTANYL DOSE. VITALS STABLE. BP BORDERLINE BUT PT DENIES CHEST PAIN, DIZZINESS OR SHORTNESS OF BREATH. IMPROVES WITH ATIVITY. ABDOMINAL SITE C/D/I. SEE FULL SHIFT ASSESSMENT. PT ABLE TO REPOSITION SELF WITH SETUP ASSIST. CALL LIGHT IN REACH, PT USING TO CHANGE TV CHANNEL AND CALL STAFF FOR VARIOUS NEEDS. MOUTH SWABS PROVIDED UPON REQUEST. PT DENIES FURTHER NEEDS.
[2020-04-11 20:27] LABS: BASOPHILS PERCENT AUTO 0 % (0-2); EOSINOPHILS PERCENT AUTO 0 % (0-6); Hematocrit 20.2 % (37.0-53.0); Hemoglobin 6.6 g/dL (13.5-17.5); IMMATURE GRAN ABSOLUTE AUTO 0.05 K/mm3 (0.00-0.10); IMMATURE GRAN PERCENT AUTO 0 % (0-1); LYMPHOCYTES ABSOLUTE AUTO 0.54 K/mm3 (0.84-5.20); LYMPHOCYTES PERCENT AUTO 4 % (21-46); MONOCYTES PERCENT AUTO 2 % (4-13); Mean Corpuscular HGB 29.3 pg (26.0-34.0); Mean Corpuscular HGB Conc 32.7 g/dL (31.5-36.5); Mean Corpuscular Volume 90 fL (80-100); Mean Platelet Volume 8.7 fL (9.1-12.4); NEUTROPHILS ABSOLUTE AUTO 11.82 K/mm3 (1.96-9.15); NEUTROPHILS PERCENT AUTO 93 % (41-73); NRBC ABSOLUTE 0.02 K/mm3 (0.00-0.02); NRBC Auto 0.2 /100 WBC (0.0-0.2); Platelet Count 605 K/mm3 (150-400); RDW Coefficient Variation 16.1 % (11.7-14.2); RDW Standard Deviation 52.3 fL (35.1-46.3); Red Blood Cell Count 2.25 M/mm3 (4.30-5.90); White Blood Cell Count 12.71 K/mm3 (4.00-11.30)
[2020-04-11 20:44] LABS: Albumin, Blood 2.2 g/dL (3.4-5.0); Anion Gap 13 mmol/L (6-16); Blood Urea Nitrogen 41 mg/dL (8-24); Bun/Creatinine Ratio 57.5 (12.0-20.0); CO2, Blood 19 mmol/L (21-32); Calcium, Blood 9.4 mg/dL (8.5-10.1); Chloride, Blood 120 mmol/L (98-108); Creatinine, Blood 0.71 mg/dL (0.60-1.20); Glomerular Filtration Rate >60 (60-); Glucose, Blood 148 mg/dL (70-99); Phosphorus, Blood 2.4 mg/dL (2.5-4.9); Potassium, Blood 3.5 mmol/L (3.5-5.5); Sodium, Blood 152 mmol/L (136-145)
--- NOTE | 2020-04-11 20:45 | NUR ---
TRANSFER PHONE CALL RECEIVED FROM [facility] SURVEILLANCE SYSTEMS ENGINEER THAT PT HAS BED AVAILABLE AT [facility]. PT TO GO TO UNIT 14A ROOM 16. CALL PLACED TO DR. SANCHEZ FOR TRANSFER ORDERS. ORDERS PLACED BY DR. SANCHEZ. PT UPDATED AND REPORTS FEELING SUPER GRATEFUL. PT PROVIDED WITH DETAILS, UPDATING FAMILY VIA TEXT FROM HIS CELL PHONE.
--- NOTE | 2020-04-11 20:52 | NUR ---
DR. GAGNON SPOKE WITH DR. GAGNON REGARDING PLAN FOR TRANSFER TO [facility] AND MOST RECENT H&H. NEW ORDER TO REPEAT H&H AND INITIATE 1 UNIT PRBC PRIOR TO TRANSFER. STAT LABS ORDERED.
[2020-04-11 21:24] LABS: Hematocrit 20.3 % (37.0-53.0); Hemoglobin 6.7 g/dL (13.5-17.5)
--- NOTE | 2020-04-12 00:05 | NUR ---
TRANSFER BLOOD INITIATED WHEN AVAILABLE. VITALS STABLE, BP CONTINUES TO BE BORDERLINE BUT MAP 65 OR GREATER. NO SIGNS OF BLOOD TRANSFUSION REACTION. [facility] [place] TO TRANSFER PATIENT TO [facility]. NEW DRESSING TO ABDOMEN DUE TO SATURATION. REPORT GIVEN TO EMT'S.
--- NOTE | 2020-04-12 00:24 | NUR ---
REPORT CALLED TO [facility]
== END 2020-04-12 00:05 | disposition short-term general hospital (02) | DRG 356 ==
LOC: ER 09:39 → ICUW 12:29 → PCU 12:29 → ICUW 17:16
PROVIDERS: Emergency Medicine; Internal Medicine; Internal Medicine Critical Care Medicine; Surgery; ADMIT Internal Medicine
PROC: 30233N1 Transfusion of Nonautologous Red Blood Cells into Peripheral Vein, Percutaneous Approach (ICD-10-PCS; 2020-04-11)
PROC: 0WPF0JZ Removal of Synthetic Substitute from Abdominal Wall, Open Approach (ICD-10-PCS; principal; 2020-04-11 14:00)
DX: K63.2 Fistula of intestine (principal); J96.01 Acute respiratory failure with hypoxia; N17.9 Acute kidney failure, unspecified; E87.2 Acidosis; R65.10 Systemic inflammatory response syndrome (SIRS) of non-infectious origin without acute organ dysfunction; J44.1 Chronic obstructive pulmonary disease with (acute) exacerbation; E87.0 Hyperosmolality and hypernatremia; Z20.828 Contact with and (suspected) exposure to other viral communicable diseases; E87.6 Hypokalemia; I12.9 Hypertensive chronic kidney disease with stage 1 through stage 4 chronic kidney disease, or unspecified chronic kidney disease; N18.9 Chronic kidney disease, unspecified; K21.9 Gastro-esophageal reflux disease without esophagitis; I48.0 Paroxysmal atrial fibrillation; G47.33 Obstructive sleep apnea (adult) (pediatric); F17.210 Nicotine dependence, cigarettes, uncomplicated; M54.9 Dorsalgia, unspecified; D64.9 Anemia, unspecified; D47.3 Essential (hemorrhagic) thrombocythemia; F10.21 Alcohol dependence, in remission; Z85.46 Personal history of malignant neoplasm of prostate; Z79.01 Long term (current) use of anticoagulants; Z79.899 Other long term (current) drug therapy
CPT/HCPCS: 36415; 36430; 36600; 51703; 71045; 72070; 72100; 74177; 80048; 80053; 80069; 81001; 82550; 82693; 82803; 83605; 83615; 83735; 83880; 83930; 84100; 84145; 84478; 84484; 85014; 85018; 85025; 85027; 86850; 86900; 86901; 86923; 87040; 87070; 87077; 87186; 87205; 93005; 93010; 94640; 96361; 96365-59; 96375; 99285-25; C1751; J0295; J0696; J1100; J1170; J2370; J2405; J2704; J2920; J2930; J3010; J3411; J3480; J7030; J7050; J7070; J7120; P9016; Q9967; U0003

== ENCOUNTER → 2020-05-28 | Outpatient (CLI) | payer OTHER, BC ==
[~2020-05-28] MED LIST changes: +IMODIUM A-D2 M1 PO; +Ventolin/Prove6.7 GM INH
[2020-05-28 15:25] LABS: BASOPHILS ABSOLUTE AUTO 0.03 K/mm3 (0.00-0.23); BASOPHILS PERCENT AUTO 0 % (0-2); EOSINOPHILS ABSOLUTE AUTO 0.13 K/mm3 (0.00-0.68); EOSINOPHILS PERCENT AUTO 2 % (0-6); Hematocrit 33.6 % (37.0-53.0); Hemoglobin 10.5 g/dL (13.5-17.5); IMMATURE GRAN ABSOLUTE AUTO 0.02 K/mm3 (0.00-0.10); IMMATURE GRAN PERCENT AUTO 0 % (0-1); LYMPHOCYTES PERCENT AUTO 28 % (21-46); MONOCYTES ABSOLUTE AUTO 0.57 K/mm3 (0.16-1.47); MONOCYTES PERCENT AUTO 7 % (4-13); Mean Corpuscular HGB 29.2 pg (26.0-34.0); Mean Corpuscular HGB Conc 31.3 g/dL (31.5-36.5); Mean Corpuscular Volume 94 fL (80-100); Mean Platelet Volume 9.7 fL (9.1-12.4); NEUTROPHILS ABSOLUTE AUTO 4.84 K/mm3 (1.96-9.15); NEUTROPHILS PERCENT AUTO 62 % (41-73); Platelet Count 293 K/mm3 (150-400); RDW Coefficient Variation 15.3 % (11.7-14.2); RDW Standard Deviation 53.1 fL (35.1-46.3); Red Blood Cell Count 3.59 M/mm3 (4.30-5.90); White Blood Cell Count 7.79 K/mm3 (4.00-11.30)
[2020-05-28 19:11] LABS: Alanine Aminotransfer (ALT/SGP 23 U/L (12-78); Albumin, Blood 3.6 g/dL (3.4-5.0); Albumin/Globulin Ratio 0.8 (0.8-1.8); Alk Phos 111 U/L (50-136); Anion Gap 7 mmol/L (6-16); Aspartate Aminotrans (AST/SGOT 13 U/L (12-37); Bilirubin, Total 0.4 mg/dL (0.1-1.0); Blood Urea Nitrogen 35 mg/dL (8-24); Bun/Creatinine Ratio 41.4 (12.0-20.0); CO2, Blood 25 mmol/L (21-32); Calcium, Blood 9.8 mg/dL (8.5-10.1); Chloride, Blood 110 mmol/L (98-108); Creatinine, Blood 0.85 mg/dL (0.60-1.20); Globulin, Blood 4.4 g/dL (2.2-4.0); Glomerular Filtration Rate >60 (60-); Glucose, Blood 90 mg/dL (70-99); Magnesium, Blood 1.9 mg/dL (1.6-2.4); Phosphorus, Blood 5.6 mg/dL (2.5-4.9); Potassium, Blood 4.2 mmol/L (3.5-5.5); Sodium, Blood 142 mmol/L (136-145)
== END | disposition home or self-care (01) ==
LOC: LAB SHORT 14:06 → LAB 14:06
PROVIDERS: Nurse Practitioner Family
DX: R79.89 Other specified abnormal findings of blood chemistry (principal); E61.2 Magnesium deficiency; R68.89 Other general symptoms and signs
CPT/HCPCS: 80053; 83735; 84100; 85025

== ENCOUNTER 2021-02-14 10:16 | Emergency (ER) | payer OTHER, BC ==
[~2021-02-14] VITALS: Ht 167.6 cm; Wt 89.8 kg
[2021-02-14 11:19] LABS: BASOPHILS ABSOLUTE AUTO 0.04 K/mm3 (0.00-0.23); BASOPHILS PERCENT AUTO 0 % (0-2); EOSINOPHILS ABSOLUTE AUTO 0.15 K/mm3 (0.00-0.68); EOSINOPHILS PERCENT AUTO 2 % (0-6); Hematocrit 42.5 % (37.0-53.0); Hemoglobin 14.3 g/dL (13.5-17.5); IMMATURE GRAN ABSOLUTE AUTO 0.02 K/mm3 (0.00-0.10); IMMATURE GRAN PERCENT AUTO 0 % (0-1); LYMPHOCYTES ABSOLUTE AUTO 2.27 K/mm3 (0.84-5.20); LYMPHOCYTES PERCENT AUTO 23 % (21-46); MONOCYTES ABSOLUTE AUTO 0.59 K/mm3 (0.16-1.47); MONOCYTES PERCENT AUTO 6 % (4-13); Mean Corpuscular HGB 31.3 pg (26.0-34.0); Mean Corpuscular HGB Conc 33.6 g/dL (31.5-36.5); Mean Corpuscular Volume 93 fL (80-100); Mean Platelet Volume 8.9 fL (9.1-12.4); NEUTROPHILS ABSOLUTE AUTO 6.99 K/mm3 (1.96-9.15); NEUTROPHILS PERCENT AUTO 69 % (41-73); Platelet Count 279 K/mm3 (150-400); RDW Coefficient Variation 14.5 % (11.7-14.2); RDW Standard Deviation 49.1 fL (35.1-46.3); Red Blood Cell Count 4.57 M/mm3 (4.30-5.90); White Blood Cell Count 10.06 K/mm3 (4.00-11.30)
[2021-02-14 11:32] LABS: Source, Urine Clean Catch
[2021-02-14 11:35] LABS: Bilirubin, Urine Neg (Neg); Blood, Urine 1+ (Neg); Glucose Qualitative, Urine Neg (Neg); Ketones, Urine Neg (Neg); Leukocyte Esterase, Urine Neg (Neg); Nitrite, Urine Neg (Neg); Protein, Urine 2+ (Neg); Specific Gravity, Urine 1.025 (1.003-1.022); Urobilinogen, Urine 2+ (Normal)
[2021-02-14 11:43] LABS: Appearance, Urine Hazy (Clear); Color, Urine Yellow (P-Yellow)
[2021-02-14 11:44] LABS: Squamous Epithelial Cells Few /hpf (Few); White Blood Cells, Urine Rare /hpf (0-5)
[2021-02-14 11:45] LABS: Bacteria Rare /hpf; Mucus Mod (0-Heavy)
[2021-02-14 11:46] LABS: Alanine Aminotransfer (ALT/SGP 17 U/L (12-78); Albumin, Blood 3.6 g/dL (3.4-5.0); Albumin/Globulin Ratio 0.9 (0.8-1.8); Alk Phos 112 U/L (50-136); Anion Gap 6 mmol/L (6-16); Aspartate Aminotrans (AST/SGOT 10 U/L (12-37); Bilirubin, Total 0.5 mg/dL (0.1-1.0); Blood Urea Nitrogen 8 mg/dL (8-24); Bun/Creatinine Ratio 10.9 (12.0-20.0); CO2, Blood 22 mmol/L (21-32); Calcium, Blood 9.4 mg/dL (8.5-10.1); Chloride, Blood 110 mmol/L (98-108); Creatinine, Blood 0.74 mg/dL (0.60-1.20); Globulin, Blood 4.2 g/dL (2.2-4.0); Glomerular Filtration Rate >60 (60-); Glucose, Blood 111 mg/dL (70-99); Sodium, Blood 138 mmol/L (136-145); Total Protein, Blood 7.8 g/dL (6.4-8.2)
[2021-02-14] MEDS ORDERED: RISPERIDONE PO (14:55)
[2021-02-14 17:51] LABS: Adenovirus F 40/41 Not Detected (NOT DETECT); Astrovirus Not Detected (NOT DETECT); Campylobacter Sp Not Detected (NOT DETECT); Cryptosporidium Not Detected (NOT DETECT); Cyclospora Cayetanensis Not Detected (NOT DETECT); E. Coli O157 Not Detected (NOT DETECT); Entamoeba Histolytica Not Detected (NOT DETECT); Enteroaggregative E. coli-EAEC Not Detected (NOT DETECT); Enteropathogenic E. coli-EPEC Not Detected (NOT DETECT); Enterotoxigenic E. coli-ETEC Not Detected (NOT DETECT); Giardia Lamblia Not Detected (NOT DETECT); Norovirus GI/GII Not Detected (NOT DETECT); Plesiomonas Shigelloides Not Detected (NOT DETECT); Rotavirus A Not Detected (NOT DETECT); Salmonella Sp Not Detected (NOT DETECT); Sapovirus Not Detected (NOT DETECT); Shiga Toxin-prod E. coli-STEC Not Detected (NOT DETECT); Shigella/Enteroin E. coli-EIEC Not Detected (NOT DETECT); Vibrio Cholerae Not Detected (NOT DETECT); Vibrio Sp Not Detected (NOT DETECT); Yersinia Enterocolitica Not Detected (NOT DETECT)
== END 2021-02-14 15:20 | disposition left against medical advice (07) ==
LOC: ER 10:16
PROVIDERS: Emergency Medicine; Physician Assistant
DX: K62.5 Hemorrhage of anus and rectum (principal); I10 Essential (primary) hypertension; K21.9 Gastro-esophageal reflux disease without esophagitis; I48.0 Paroxysmal atrial fibrillation; F17.200 Nicotine dependence, unspecified, uncomplicated; Z88.8 Allergy status to other drugs, medicaments and biological substances; Z79.01 Long term (current) use of anticoagulants; Z79.899 Other long term (current) drug therapy
CPT/HCPCS: 0097U; 36415; 80053; 81001; 85025; 86850; 86900; 86901; 93005; 93010; 99284-25

== ENCOUNTER → 2022-04-13 | Outpatient (CLI) | payer OTHER ==
[~2022-04-13] MED LIST changes: +RISPERIDONE PO
== END | disposition home or self-care (01) ==
LOC: LAB SHORT 09:06 → LAB 09:06
DX: D48.5 Neoplasm of uncertain behavior of skin (principal); D22.5 Melanocytic nevi of trunk; L08.9 Local infection of the skin and subcutaneous tissue, unspecified; L98.1 Factitial dermatitis; L81.4 Other melanin hyperpigmentation; L85.3 Xerosis cutis; L57.8 Other skin changes due to chronic exposure to nonionizing radiation
CPT/HCPCS: 87070; 87205

== ENCOUNTER 2022-06-01 11:09 | Emergency (ER) | payer OTHER, BC ==
[~2022-06-01] VITALS: Ht 167.6 cm; Wt 86.2 kg
[2022-06-01 12:02] LABS: BASOPHILS ABSOLUTE AUTO 0.03 K/mm3 (0.00-0.23); BASOPHILS PERCENT AUTO 0 % (0-2); EOSINOPHILS ABSOLUTE AUTO 0.05 K/mm3 (0.00-0.68); EOSINOPHILS PERCENT AUTO 1 % (0-6); Hematocrit 44.8 % (37.0-53.0); Hemoglobin 15.7 g/dL (13.5-17.5); IMMATURE GRAN ABSOLUTE AUTO 0.02 K/mm3 (0.00-0.10); IMMATURE GRAN PERCENT AUTO 0 % (0-1); LYMPHOCYTES ABSOLUTE AUTO 1.76 K/mm3 (0.84-5.20); LYMPHOCYTES PERCENT AUTO 22 % (21-46); MONOCYTES ABSOLUTE AUTO 0.45 K/mm3 (0.16-1.47); MONOCYTES PERCENT AUTO 6 % (4-13); Mean Corpuscular HGB 32.3 pg (26.0-34.0); Mean Corpuscular Volume 92 fL (80-100); Mean Platelet Volume 9.1 fL (9.1-12.4); NEUTROPHILS ABSOLUTE AUTO 5.63 K/mm3 (1.96-9.15); NEUTROPHILS PERCENT AUTO 71 % (41-73); Platelet Count 174 K/mm3 (150-400); RDW Coefficient Variation 13.7 % (11.7-14.2); RDW Standard Deviation 46.7 fL (35.1-46.3); Red Blood Cell Count 4.86 M/mm3 (4.30-5.90); White Blood Cell Count 7.94 K/mm3 (4.00-11.30)
[2022-06-01 12:18] LABS: Albumin, Blood 3.3 g/dL (3.4-5.0); Albumin/Globulin Ratio 0.9 (0.8-1.8); Bilirubin, Total 0.3 mg/dL (0.1-1.0); Calcium, Blood 9.4 mg/dL (8.5-10.1); Creatinine, Blood 0.63 mg/dL (0.60-1.20); Globulin, Blood 3.6 g/dL (2.2-4.0); Potassium, Blood 3.6 mmol/L (3.5-5.5); Total Protein, Blood 6.9 g/dL (6.4-8.2)
[2022-06-01 12:27] LABS: Influenza A, PCR NEGATIVE (NEGATIVE); Influenza B, PCR NEGATIVE (NEGATIVE); Resp Syncytial Virus, PCR NEGATIVE (NEGATIVE); SARS-Cov-2 (COVID-19) PCR, MMC NEGATIVE (NEGATIVE)
[2022-06-01 12:43] LABS: PCO2 Arterial 41.2 mmHg (35-45); PO2 Arterial 64.4 mmHg (80-100); pH Blood Arterial 7.39 (7.35-7.45)
[2022-06-01] MEDS ORDERED: PRED20 PO (15:06)
[2022-06-01] MEDS ORDERED: AZIT250 PO (15:06)
[2022-06-01] MEDS ORDERED: DILTIAZEM 24HR120 M2 PO (15:06)
[2022-06-01] MEDS ORDERED: BENZ100A PO (15:06)
== END 2022-06-01 15:45 | disposition home or self-care (01) ==
LOC: ER 11:09
PROVIDERS: Student in an Organized Health Care Education/Training Program
DX: J44.1 Chronic obstructive pulmonary disease with (acute) exacerbation (principal); I48.91 Unspecified atrial fibrillation; F17.200 Nicotine dependence, unspecified, uncomplicated; Z88.8 Allergy status to other drugs, medicaments and biological substances; Z20.822 Contact with and (suspected) exposure to COVID-19; Z79.01 Long term (current) use of anticoagulants
CPT/HCPCS: 0241U; 36415; 36600; 71046; 71260; 80053; 82803; 83735; 83880; 84484; 85025; 93005; 93010; 94640; 94664; A9270; J3475; J7512; Q9967

== ENCOUNTER 2024-11-08 14:46 | Inpatient (IN) | payer OTHER ==
[~2024-11-08] VITALS: Ht 170.2 cm; Wt 72.1 kg
[~2024-11-08 14:46] MED LIST changes: +ACET500 PO; +AZIT250 PO; +BENZ100A PO; +CENTRUM SILVER1 EAC2 PO; +DILTIAZEM 24HR120 M2 PO; +IPRAT-ALBUT 0.5-3 ML INH; +METOPROLOL TART25 MG PO; +PRED20 PO; +VITAMIN B12500 MCG PO; +WIXELA 250-501 EAC1 INH
[2024-11-08] MEDS ORDERED: Metoprolol Tartrate 50 MG Tab PO ONE (16:40)
[2024-11-08 18:38] LABS: BASOPHILS ABSOLUTE AUTO 0.04 K/mm3 (0.00-0.23); BASOPHILS PERCENT AUTO 1 % (0-2); EOSINOPHILS ABSOLUTE AUTO 0.04 K/mm3 (0.00-0.68); EOSINOPHILS PERCENT AUTO 1 % (0-6); Hematocrit 46.9 % (37.0-53.0); Hemoglobin 15.9 g/dL (13.5-17.5); IMMATURE GRAN ABSOLUTE AUTO 0.03 K/mm3 (0.00-0.10); IMMATURE GRAN PERCENT AUTO 0 % (0-1); LYMPHOCYTES ABSOLUTE AUTO 1.87 K/mm3 (0.84-5.20); LYMPHOCYTES PERCENT AUTO 21 % (21-46); MONOCYTES ABSOLUTE AUTO 0.63 K/mm3 (0.16-1.47); MONOCYTES PERCENT AUTO 7 % (4-13); Mean Corpuscular HGB 33.9 pg (26.0-34.0); Mean Corpuscular HGB Conc 33.9 g/dL (31.5-36.5); Mean Corpuscular Volume 100 fL (80-100); Mean Platelet Volume 9.1 fL (9.1-12.4); NEUTROPHILS ABSOLUTE AUTO 6.15 K/mm3 (1.96-9.15); NEUTROPHILS PERCENT AUTO 70 % (41-73); Platelet Count 222 K/mm3 (150-400); RDW Coefficient Variation 14.6 % (11.7-14.2); RDW Standard Deviation 53.5 fL (35.1-46.3); Red Blood Cell Count 4.69 M/mm3 (4.30-5.90); White Blood Cell Count 8.76 K/mm3 (4.00-11.30)
[2024-11-08] MEDS ORDERED: RX Prepack 6 Tabs Oxycodone 5mg UD ONE (18:45)
[2024-11-08 19:10] LABS: Albumin, Blood 3.5 g/dL (3.4-5.0); Bilirubin, Total 0.5 mg/dL (0.1-1.0); Bun/Creatinine Ratio 19.9 (12.0-20.0); Calcium, Blood 9.3 mg/dL (8.5-10.1); Creatinine, Blood 0.55 mg/dL (0.60-1.20); Globulin, Blood 3.4 g/dL (2.2-4.0); Potassium, Blood 3.4 mmol/L (3.5-5.5); Total Protein, Blood 6.9 g/dL (6.4-8.2)
[2024-11-08] MEDS ORDERED: FentaNYL Citrate 50 MCG/ML 2 ML Injection IV PRN (19:25)
[2024-11-08] MEDS ORDERED: Ondansetron HCl 2 MG / ML 2ML Vial IV PRN (19:25)
[2024-11-08] MEDS ORDERED: NS 1,000 ML IV SCH (19:30)
[2024-11-08 21:57] VITALS: BP 125/84
[2024-11-09] MEDS ORDERED: D5W-1/2NS 1,000 ML IV ONE (00:20)
[2024-11-09] MEDS ORDERED: Potassium Chloride 40 MEQ in NS 250 ML IV ONE (00:40)
[2024-11-09 03:24] VITALS: BP 136/89
--- NOTE | 2024-11-09 04:25 | NUR ---
SHIFT SUMMARY DANK WAS ALERT AND FULLY ORIENTED WHEN HE WAS ADMITTED FROM THE ED AT AROUND 2300. PT PAIN TO R HIP MILD AT REST, EXTREME WITH ANY MOVEMENT. PT NOTED TO HAVE A SMALL PRESSURE SORE ON HIS BOTTOM, PIC IN CHART, WELL SEVERAL SMALL SORES ACROSS HIS SHOULDERS. PT ABLE TO WIGGLE TOES, SENSATION AND CIRCULATION TO FEET INTACT. PT IS FEARFUL OF POTENTIAL SURGERY. PT WILL BE GETTING AN MRI IN AM TO DETERMINE NATURE OF FRACTURE. NO ACUTE EVENTS AFTER ADMIT.
[2024-11-09 06:15] LABS: BASOPHILS ABSOLUTE AUTO 0.03 K/mm3 (0.00-0.23); BASOPHILS PERCENT AUTO 0 % (0-2); EOSINOPHILS ABSOLUTE AUTO 0.07 K/mm3 (0.00-0.68); EOSINOPHILS PERCENT AUTO 1 % (0-6); Hematocrit 42.4 % (37.0-53.0); Hemoglobin 14.4 g/dL (13.5-17.5); IMMATURE GRAN ABSOLUTE AUTO 0.02 K/mm3 (0.00-0.10); IMMATURE GRAN PERCENT AUTO 0 % (0-1); LYMPHOCYTES ABSOLUTE AUTO 1.87 K/mm3 (0.84-5.20); LYMPHOCYTES PERCENT AUTO 23 % (21-46); MONOCYTES ABSOLUTE AUTO 0.66 K/mm3 (0.16-1.47); MONOCYTES PERCENT AUTO 8 % (4-13); Mean Corpuscular HGB 33.9 pg (26.0-34.0); Mean Corpuscular Volume 100 fL (80-100); Mean Platelet Volume 9.4 fL (9.1-12.4); NEUTROPHILS ABSOLUTE AUTO 5.36 K/mm3 (1.96-9.15); NEUTROPHILS PERCENT AUTO 67 % (41-73); Platelet Count 234 K/mm3 (150-400); RDW Coefficient Variation 14.6 % (11.7-14.2); RDW Standard Deviation 52.7 fL (35.1-46.3); Red Blood Cell Count 4.25 M/mm3 (4.30-5.90); White Blood Cell Count 8.01 K/mm3 (4.00-11.30)
[2024-11-09 07:02] LABS: Albumin, Blood 3.1 g/dL (3.4-5.0); Bilirubin, Total 0.6 mg/dL (0.1-1.0); Bun/Creatinine Ratio 19.2 (12.0-20.0); Calcium, Blood 8.8 mg/dL (8.5-10.1); Creatinine, Blood 0.47 mg/dL (0.60-1.20); Globulin, Blood 3.2 g/dL (2.2-4.0); Potassium, Blood 3.6 mmol/L (3.5-5.5); Total Protein, Blood 6.3 g/dL (6.4-8.2)
[2024-11-09 07:26] VITALS: BP 124/82
--- NOTE | 2024-11-09 09:00 | NUR ---
pt laying in bed, daughter at bedside, a/ox3-4, forgetful, pleasant and cooperative with care, follows commands well, denies pain at this time, will let nurse know when he needs at pain pill, lungs are clear in upper sy, course with some exp wheeze in bases, resp even and unlabored, breaths hard at times, states is normal for him as he has copd, he is currently on r/a, sats are above 90%, hrr, tele in place running sr with pvcs, piv to lac site is clear and patent, btx4, abd flat soft nontender, voids via urinal, skin has a pea size open area to l buttocks near coccyx, and two on each leg at the bottom of the buttocks, mepilex was placed, dian caro, call light in reach. will keep npo, waiting on mri then ortho consult.
[2024-11-09] MEDS ORDERED: HYDROcodone 5-APAP 325 TAB PO PRN (11:05)
[2024-11-09] MEDS ORDERED: FAMO20 PO (12:01)
[2024-11-09] MEDS ORDERED: Albuterol 2.5 MG/3 ML VIAL INH PRN (12:30)
[2024-11-09 13:53] VITALS: BP 137/106
[2024-11-09 16:11] VITALS: BP 151/107
[2024-11-09] MEDS ORDERED: Metoprolol Tartrate 25 MG Tab PO ONE (17:50)
--- NOTE | 2024-11-09 19:09 | NUR ---
after mri pt converted to aflutter, rate in 90-115, began trending up to 130's per tele monitor, notified Dr. Miner, recieved order to start him back on his home dose of metoprolol of 25mg bid, this was done with a now dose, pt is not symptomatic, pt spoke with ortho on phone and the plan is no surgery for now, pt has diet order and is tolerating food, daughter was in to see him, explained events, no further changes this shift. call light in reach.
[2024-11-09 19:53] VITALS: BP 111/83
[2024-11-09] MEDS ORDERED: Metoprolol Tartrate 25 MG Tab PO SCH (21:00)
[2024-11-09 23:34] VITALS: BP 112/83
--- NOTE | 2024-11-10 04:34 | NUR ---
PAPER PRODUCTS SUPERVISOR SUMMARY PT AAOX4 AND PLEASANT. 1 ASSIST INTO BATHROOM. R HIP PAIN MANAGED WITH PRN NORCO PER SEP. PT HAS REMAINED IN AFLUTTER THROUGH THE NIGHT BUT RATE HAS BEEN BETTER CONTROLLED. HR 120'S AT START OF SHIFT BUT DOWN TO 90'S AFTER 2100 DOSE OF METOPROLOL GIVEN. HR DOES CLIMB TO 120-130'S WITH ACTIVITY. OTHER VSS, WILL CONTINUE TO MONITOR.
[2024-11-10 05:26] VITALS: BP 109/82
[2024-11-10 06:55] LABS: Hematocrit 41.7 % (37.0-53.0); Hemoglobin 14.1 g/dL (13.5-17.5); Mean Corpuscular HGB 33.7 pg (26.0-34.0); Mean Corpuscular HGB Conc 33.8 g/dL (31.5-36.5); Mean Corpuscular Volume 100 fL (80-100); Mean Platelet Volume 9.2 fL (9.1-12.4); Platelet Count 233 K/mm3 (150-400); RDW Coefficient Variation 14.5 % (11.7-14.2); RDW Standard Deviation 52.7 fL (35.1-46.3); Red Blood Cell Count 4.19 M/mm3 (4.30-5.90); White Blood Cell Count 7.29 K/mm3 (4.00-11.30)
[2024-11-10 07:11] LABS: Albumin, Blood 2.9 g/dL (3.4-5.0); Anion Gap 9 mmol/L (3-11); Blood Urea Nitrogen 8 mg/dL (8-24); Bun/Creatinine Ratio 16.3 (12.0-20.0); CO2, Blood 27 mmol/L (21-32); Calcium, Blood 8.9 mg/dL (8.5-10.1); Chloride, Blood 106 mmol/L (98-108); Creatinine, Blood 0.49 mg/dL (0.60-1.20); Glomerular Filtration Rate 109 (60-); Glucose, Blood 115 mg/dL (70-99); Magnesium, Blood 1.7 mg/dL (1.6-2.4); Phosphorus, Blood 3.1 mg/dL (2.5-4.9); Potassium, Blood 3.5 mmol/L (3.5-5.5); Sodium, Blood 138 mmol/L (136-145)
[2024-11-10 07:18] VITALS: BP 119/87
[2024-11-10 11:29] VITALS: BP 97/66
[2024-11-10 15:32] VITALS: BP 104/73
--- NOTE | 2024-11-10 17:45 | NUR ---
END OF SHIFT. PT SITTING AT BEDSIDE. EATING MEAL TRAY. DENIES COMPLAINTS. WILL CONTINUE TO MONITOR. IV RFA TO SL.
[2024-11-10 19:07] VITALS: BP 100/73
[2024-11-10 23:32] VITALS: BP 102/76
[2024-11-11 02:50] VITALS: BP 124/79
--- NOTE | 2024-11-11 05:14 | NUR ---
CSR TECHNICIAN SUMMARY NO ACUTE CHANGES THIS SHIFT. PT AAOX4 AND PLEASANT. PAIN WELL MANAGED WITH ORDERED PAIN MEDS, SEE MAR. PT HAS USED URINAL AT BEDSIDE. HR HAS BEEN LOW 100'S ON TELEMETRY, STILL AFLUTTER. VSS, WILL CONTINUE TO MONITOR.
[2024-11-11 07:22] VITALS: BP 107/90
[2024-11-11 14:38] VITALS: BP 103/77
[2024-11-11] MEDS ORDERED: Norco 5-325 Ta1 EACH PO (16:04)
--- NOTE | 2024-11-11 16:33 | NUR ---
DISCHARGE DC INSTRUCT REVIEWED WITH PT AND DAUGHTER. PRINTED INSTRUCT DISPENSED. HANDWRITTEN RX NORCO GIVEN. DC'D TO POV VIA W/C WITH ABOVE ACCOMPANIED BY DAUGHTER.
== END 2024-11-11 16:48 | disposition home health service (06) | DRG 536 ==
LOC: ER 14:46 → SURS 19:22
PROVIDERS: Internal Medicine; Student in an Organized Health Care Education/Training Program; ADMIT Student in an Organized Health Care Education/Training Program
DX: S72.111A Displaced fracture of greater trochanter of right femur, initial encounter for closed fracture (principal); W18.30XA Fall on same level, unspecified, initial encounter; F17.210 Nicotine dependence, cigarettes, uncomplicated; J44.9 Chronic obstructive pulmonary disease, unspecified; I10 Essential (primary) hypertension; I48.91 Unspecified atrial fibrillation; F17.290 Nicotine dependence, other tobacco product, uncomplicated; R41.3 Other amnesia; Z87.19 Personal history of other diseases of the digestive system; Z88.8 Allergy status to other drugs, medicaments and biological substances; Z79.01 Long term (current) use of anticoagulants; Z79.899 Other long term (current) drug therapy; Z79.891 Long term (current) use of opiate analgesic; Z90.49 Acquired absence of other specified parts of digestive tract; Z98.890 Other specified postprocedural states
CPT/HCPCS: 36415; 73721; 80053; 80069; 83735; 83880; 85025; 85027; 93005; 93010; 93306; 94760; 97110; 97116; 97162; 99284-25; A9270; J3010; J3480; J7042; J7050

== ENCOUNTER 2025-07-05 13:24 | Emergency (ER) | payer OTHER ==
[~2025-07-05] VITALS: Ht 170.2 cm; Wt 63.5 kg
[~2025-07-05 13:24] MED LIST changes: +DIGOX125 MC1 PO; +FAMO20 PO; +FT SENNA-S 8.61 EACH PO; +Flomax0.4 MG PO; +MIRALAX17 GM PO; +OXAYDO5 M7 PO; +PANT40 PO
[2025-07-05] MEDS ORDERED: NS 1,000 ML IV SCH (13:35)
[2025-07-05 14:08] LABS: BASOPHILS ABSOLUTE AUTO 0.01 K/mm3 (0.00-0.23); BASOPHILS PERCENT AUTO 0 % (0-2); EOSINOPHILS ABSOLUTE AUTO 0.02 K/mm3 (0.00-0.68); EOSINOPHILS PERCENT AUTO 0 % (0-6); Hematocrit 29.2 % (37.0-53.0); Hemoglobin 9.5 g/dL (13.5-17.5); IMMATURE GRAN ABSOLUTE AUTO 0.01 K/mm3 (0.00-0.10); IMMATURE GRAN PERCENT AUTO 0 % (0-1); LYMPHOCYTES ABSOLUTE AUTO 1.38 K/mm3 (0.84-5.20); LYMPHOCYTES PERCENT AUTO 22 % (21-46); MONOCYTES ABSOLUTE AUTO 0.61 K/mm3 (0.16-1.47); MONOCYTES PERCENT AUTO 10 % (4-13); Mean Corpuscular HGB Conc 32.5 g/dL (31.5-36.5); Mean Corpuscular Volume 105 fL (80-100); NEUTROPHILS ABSOLUTE AUTO 4.39 K/mm3 (1.96-9.15); NEUTROPHILS PERCENT AUTO 68 % (41-73); NRBC ABSOLUTE 0.00 K/mm3 (0.00-0.02); NRBC Auto 0.0 /100 WBC (0.0-0.2); Platelet Count 286 K/mm3 (150-400); RDW Coefficient Variation 15.2 % (11.7-14.2); RDW Standard Deviation 58.2 fL (35.1-46.3)
[2025-07-05 14:34] LABS: Alanine Aminotransfer (ALT/SGP 13.0 U/L (12-78); Albumin, Blood 2.6 g/dL (3.4-5.0); Albumin/Globulin Ratio 1.0 (0.8-1.8); Anion Gap 7.0 mmol/L (3-11); Aspartate Aminotrans (AST/SGOT 11.0 U/L (12-37); Bilirubin, Total 0.6 mg/dL (0.1-1.0); Blood Urea Nitrogen 18.0 mg/dL (8-24); CO2, Blood 28.0 mmol/L (21-32); Calcium, Blood 8.2 mg/dL (8.5-10.1); Chloride, Blood 103.0 mmol/L (98-108); Creatinine, Blood 0.68 mg/dL (0.60-1.20); Globulin, Blood 2.7 g/dL (2.2-4.0); Glucose, Blood 83.0 mg/dL (70-99); Potassium, Blood 3.9 mmol/L (3.5-5.5); Sodium, Blood 134.0 mmol/L (136-145); Total Protein, Blood 5.3 g/dL (6.4-8.2)
[2025-07-05] MEDS ORDERED: MECL25 PO (18:00)
[2025-07-05 18:40] VITALS: BP 108/50
== END 2025-07-05 18:46 | disposition home or self-care (01) ==
LOC: ER 13:24
PROVIDERS: Emergency Medicine
DX: R42 Dizziness and giddiness (principal); Z79.01 Long term (current) use of anticoagulants; Z79.899 Other long term (current) drug therapy; I10 Essential (primary) hypertension; K21.9 Gastro-esophageal reflux disease without esophagitis; M19.90 Unspecified osteoarthritis, unspecified site; F17.200 Nicotine dependence, unspecified, uncomplicated
CPT/HCPCS: 71045; 80053; 84484; 85025; 93005; 93010; 96360; 99285-25; A9270; J7030